=== PATIENT | female | born 1990 | race Caucasian/White ===

== ENCOUNTER 2016-09-30 13:35 | Emergency (ER) | payer OTHER ==
[~2016-09-30] VITALS: Ht 160 cm; Wt 57.0 kg
[2016-09-30 14:38] VITALS: Ht 160 cm; Wt 57.0 kg
[2016-09-30] MEDS ORDERED: FLUORESCEIN STRIP RIGHT EYE ONE (15:30)
[2016-09-30] MEDS ORDERED: BEN50 PO (15:30)
[2016-09-30] MEDS ORDERED: ELIM TOP (15:30)
--- NOTE | 2016-09-30 15:40 | ERD ---
ER Documentation Chief Complaint Date/Time DATE: 09/30/16 TIME: 15:33 Chief Complaint GERNERALIZED BUMPS WTIH ITCHINESS X 1 MONTH HPI 26-year-old female complaining of pruritic lesions past 1 month. Patient stated that the lesion started on her feet and ankle, and progressively migrated upwards. She now has lesions on her legs, groin area, and her hands. She initially thought this might be bedbugs, she had replaced all her furniture and had her apartment fumigated. But still gets more lesions daily. She has a pet dog that sleeps with her. Her dog recently got mites. Denies shortness of breath. Denies exposure to new foods or new cleaning products. ROS All systems reviewed and are negative except as per history of present illness. Medications Home Meds Active Scripts Permethrin* (Elimite*) 5% Cr, 1 APPLIC TOP ONCE, #2 TUB May repeat once after 2 weeks. Prov:ADE WALKER. 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 TUBE CUTTER OPERATOR 09/30/16 PMhx/Soc Medical and Surgical Hx: pt denies Medical Hx, pt denies Surgical Hx History of Surgery: No Anesthesia Reaction: No Hx Neurological Disorder: No Hx Respiratory Disorders: No Hx Cardiac Disorders: No Hx Psychiatric Problems: No Hx Miscellaneous Medical Probl: No Hx Alcohol Use: No Hx Substance Use: No Hx Tobacco Use: No Physical Exam Vitals Vital Signs Date Time Temp Pulse Resp B/P Pulse Ox O2 Delivery O2 Flow Rate FiO2 09/30/16 14:38 96.6 88 20 117/76 96 Physical Exam General impression: Well-developed, well-nourished. Alert, oriented, in no acute distress Head: Normocephalic, atraumatic. Eyes: PERRL, EOM normal. Conjunctiva not injected. ENT: External canals clear. TM's pearly rodriguez. Nasal mucosa, oral mucosa and oropharynx are normal. Neck: Supple, nontender. No lymphadenopathy. No nuchal rigidity. Respiration: Normal respiratory effort. Lungs clear to auscultate bilaterally. No wheezes, rales or rhonchi. Cardiovascular: Regular rate and rhythm. No murmurs or extra heart sounds. Abdomen: Abdomen normal to inspection. Nontender. No masses or organomegaly. Bowel sounds normal. Back: Normal to inspection. No midline spine tenderness. No CVA tenderness. Extremities: Extremities normal to inspection, nontender. ROM normal. Neuro: Mental status normal, speech normal. VARITYPIST grossly intact. Skin: Normal turgor. Clusters of submillimeter sized erythematous papules noted on her feet, upper and lower extremities. Few lesions on torso. Psych: Normal mood and affect. Results 24 hrs Current Medications Medications (Trade) Dose Ordered Sig/Delfin Route PRN Reason Start Time Stop Time Status Last Admin Dose Admin Fluorescein Sodium ([id number]) 1 strip ONCE ONCE RIGHT EYE 09/30/16 15:30 09/30/16 15:30 DC Procedures/MDM Well-appearing 26-year-old female presented to ED with pruritic skin lesions 1 month. Her lesions has appearance of scabies. Patient is given prescription of Elimite lotion. Advised patient on how to use use the lotion, and how to prevent reinfection. Low suspicion for allergic reaction. I doubt anaphylaxis. Patient appears well, stable for discharge and outpatient management. Medical decision making shared with patient and family. Education provided to patient and family. Patient and family expressed understanding of the plan. Medications on discharge: Elimite, Benadryl. Follow-up: Primary care provider in 2-3 days or return to ED if worse. Departure Diagnosis: Primary Impression: Scabies Condition: Good Patient Instructions: Scabies Referrals: [facility] YOU HAVE RECEIVED A MEDICAL SCREENING EXAM AND THE RESULTS INDICATE THAT YOU DO NOT HAVE A CONDITION THAT REQUIRES URGENT TREATMENT IN THE EMERGENCY DEPARTMENT. FURTHER EVALUATION AND TREATMENT OF YOUR CONDITION CAN WAIT UNTIL YOU ARE SEEN IN YOUR DOCTORS OFFICE WITHIN THE NEXT 1-2 DAYS. IT IS YOUR RESPONSIBILITY TO MAKE AN APPOINTMENT FOR FOLOW-UP CARE. IF YOU HAVE A PRIMARY DOCTOR --you should call your primary doctor and schedule an appointment IF YOU DO NOT HAVE A PRIMARY DOCTOR YOU CAN CALL OUR PHYSICIAN REFERRAL HOTLINE AT IF YOU CAN NOT AFFORD TO SEE A PHYSICIAN YOU CAN CHOSE FROM THE FOLLOWING [facility] [id number] [facility]. [facility] [address] [facility] [address] [facility] [facility] [address] [facility]. [facility] [address] [facility]. [facility]. [address] Additional Instructions: Call your primary care doctor TOMORROW for an appointment during the next 1 WEEK.Tell the dictaphone technician that you were referred from this facility.See the doctor sooner or return here if your condition worsens before your appointment time. ADE WALKER. DAVID Sep 30, 2016 15:40
== END 2016-09-30 16:09 | disposition home or self-care (01) ==
LOC: FTE 13:35
DX: B86 Scabies (principal)
CPT/HCPCS: Z7502; Z7610; 99283

== ENCOUNTER 2018-03-16 14:12 | Emergency (ER) | END 2018-03-16 16:37 | disposition home or self-care (01) ==